=== PATIENT | female | born 1990 | race African-American/Black ===

== ENCOUNTER 2024-06-16 09:41 | Emergency (ER) | payer OTHER ==
[~2024-06-16] VITALS: Ht 162.6 cm; Wt 78.0 kg
[2024-06-16 10:04] VITALS: BP 118/79
[2024-06-16 11:00] VITALS: BP 120/73
[2024-06-16 11:30] VITALS: BP 123/75
[2024-06-16 12:00] VITALS: BP 123/79
[2024-06-16 12:16] VITALS: BP 123/79
== END 2024-06-16 12:20 | disposition home or self-care (01) ==
LOC: ED 09:41
DX: M79.642 Pain in left hand (principal)